=== PATIENT | female | born 1970 | race Caucasian/White ===

== ENCOUNTER 2018-01-28 07:44 | Day surgery (SDC) | payer OTHER ==
[2018-01-28] MEDS ORDERED: CIPRO500 MG PO (13:09)
[2018-01-28] MEDS ORDERED: NAPROXEN250 MG PO (13:09)
== END 2018-01-28 14:51 | disposition home or self-care (01) ==
LOC: CIR.AMB 07:44
DX: N84.0 Polyp of corpus uteri (principal)